=== PATIENT | female | born 2000 | race Caucasian/White ===

== ENCOUNTER 2018-05-28 17:09 | Emergency (ER) | payer BC ==
[~2018-05-28] VITALS: Ht 170.2 cm; Wt 72.6 kg
--- OUTSIDE RECORDS SUMMARY | 2018-05-28 17:12 | XMS REPORT | Summary of Care ---
Author Author [facility] Address Unknown Phone Unavailable Encounter [facility] Virginiar_catalinanasrin([facility]) [phone] Date(s): 05/23/15 - 06/21/15 [facility] Discharge Disposition: Home Attending Physician: Yifan Braswell MD Vital Signs No data available for this section Problem List No data available for this section Allergies, Adverse Reactions, Alerts No data available for this section Medications No data available for this section Results No data available for this section Immunizations No data available for this section Procedures No data available for this section Social History No data available for this section Assessment and Plan No data available for this section
--- OUTSIDE RECORDS SUMMARY | 2018-05-28 17:12 | XMS REPORT | Summary of Care ---
Author Author [facility] Outpatient Imaging [facility] [place] Address Unknown Phone Unavailable Encounter [facility] Encntr_alias(FIN) [id number] Date(s): 02/06/15 - 02/06/15 [facility] Outpatient Imaging [id number] [place], [place] [id number] [phone] Discharge Disposition: Home Attending Physician: Yifan Braswell [...]
== END 2018-05-28 19:42 | disposition left against medical advice (07) ==
LOC: ER 17:09
DX: M25.511 Pain in right shoulder (principal)